=== PATIENT | female | born 1965 | race African-American/Black ===

== ENCOUNTER 2020-06-14 12:05 | Outpatient (CLI) | payer MEDICAID ==
--- NOTE | 2020-06-15 15:30 | Consultation ---
DATE OF CONSULTATION: 06/14/2020 GASTROENTEROLOGY CONSULTATION CONSULTING PHYSICIAN: Marquez Quigley MD. CHIEF COMPLAINT: Chronic GERD, also need for screening colonoscopy. PAST MEDICAL HISTORY: 1. H. pylori positive infection, status post treatment. 2. Hypertension. PAST SURGICAL HISTORY: None. MEDICATIONS: Medication for high blood pressure. FAMILY HISTORY: Noncontributory. SOCIAL HISTORY: The patient denies any tobacco, alcohol, or drug use. ALLERGIES: Penicillin. REVIEW OF SYSTEMS: Positive for GERD. PHYSICAL EXAMINATION: VITAL SIGNS: Stable. HEENT: Normocephalic and atraumatic. Sclerae are anicteric. NECK: Supple. No evidence of obvious lymphadenopathy. CARDIOVASCULAR: Regular rate and rhythm. Plus S1-S2. LUNGS: Clear to auscultation bilaterally. ABDOMEN: Soft, nontender. No rebound. No guarding. No peritoneal sign. EXTREMITIES: No cyanosis, no clubbing, no edema. ASSESSMENT AND PLAN: This is a 54-year-old female with chronic GERD not responding to [id number] PPI, needs an endoscopy. Also, she never had a colonoscopy, so she needs a screening colonoscopy. The patient will be given instruction for both procedures. Risks and benefits of procedure was explained to her. We will schedule as soon as authorization is obtained. Marquez Quigley M.D. DR: NICOLE JOB#: [id number] CC:
== END 2020-06-14 14:40 | disposition home or self-care (01) ==
LOC: PAN 12:05
DX: K21.9 Gastro-esophageal reflux disease without esophagitis (principal); I10 Essential (primary) hypertension
CPT/HCPCS: 99203